=== PATIENT | female | born 2005 | race African-American/Black ===

== ENCOUNTER 2025-04-23 19:37 | Emergency (ER) | payer OTHER ==
[~2025-04-23] VITALS: Ht 172.7 cm; Wt 70.9 kg
[2025-04-23] MEDS: OMEPRAZOLE 20MG CAP PO ONE (21:27)
[2025-04-23] MEDS: SUCRALFATE SUSP 1GM/10ML UD PO ONE (21:27)
[2025-04-23] MEDS: LIDOCAINE VISCOUS 2% SOLN 15 ML UDC PO ONE (21:28)
[2025-04-23 21:47] LABS: BASO # 0.0 10^3/uL (0.0-0.2); BASO % 0.7 % (0.0-1.0); EOS # 0.1 10^3/uL (0.0-0.5); EOS % 2.2 % (0.0-3.0); LYMPH # 2.1 10^3/uL (1.5-5.0); LYMPH % 34.3 % (24.0-44.0); MONO # 0.5 10^3/uL (0.0-0.8); MONO % 8.2 % (2.0-8.0); NEUTROPHILS # 3.3 10^3/uL (1.5-8.5); NEUTROPHILS % 54.4 % (36.0-66.0); PLATELET COUNT, AUTOMATED 276 10^3/uL (150-450)
[2025-04-23 22:14] LABS: CK-MB VALUE MASS < 1.0 NG/ML (<3.6)
[2025-04-23 22:16] LABS: ALT/SGPT < 9 U/L (7.0-40); AST/SGOT 18 U/L (<34); CALCIUM LEVEL 9.3 MG/DL (8.5-10.1); CARBON DIOXIDE LEVEL 29 MMOL/L (20-31); CHLORIDE LEVEL 105 MMOL/L (98-107); CPK CREATINE PHOSPHOKINASE 119 U/L (34-145); CREATININE FOR GFR 0.77 MG/DL (0.55-1.30); GLOMERULAR FILTRATION RATE > 90.0 (>60); POTASSIUM SERUM 4.5 MMOL/L (3.5-5.1); SODIUM LEVEL 143 MMOL/L (136-145)
[2025-04-23 22:17] LABS: HCG, SERUM QUALITATIVE NEGATIVE (NEGATIVE)
[2025-04-23] MEDS ORDERED: OMEP40CA4 PO (22:41)
[2025-04-23] MEDS ORDERED: SUCR1TA PO (22:41)
[2025-04-23 22:46] VITALS: BP 126/72; TEMP 98.6; O2SAT 99
== END 2025-04-23 22:51 | disposition home or self-care (01) ==
LOC: M ED 19:37
DX: K21.9 Gastro-esophageal reflux disease without esophagitis (principal); R07.89 Other chest pain